=== PATIENT | female | born 1990 | race African-American/Black ===

== ENCOUNTER 2017-01-13 16:05 | Emergency (ER) | payer OTHER ==
[~2017-01-13] VITALS: Ht 170.2 cm; Wt 57.6 kg
[~2017-01-13 16:05] MED LIST: AMOXICILLIN 50500 MG PO; DIFLUCAN150 M1 PO; LIDOCAINE 22 %/30 GM MM
[2017-01-13 16:38] LABS: URINE BILIRUBIN NEGATIVE (Negative); URINE BLOOD TRACE (Negative); URINE COLOR YELLOW; URINE GLUCOSE-RANDOM* NEGATIVE (Negative); URINE KETONES NEGATIVE (Negative); URINE NITRITE NEGATIVE (Negative); URINE PROTEIN (DIPSTICK) NEGATIVE (Negative); URINE SPECIFIC GRAVITY <= 1.005 (1.003-1.035); URINE UROBILINOGEN 0.2 E.U./dl (0.2-1.0)
[2017-01-13] MEDS ORDERED: DIFLUCAN150 MG PO (17:40)
[2017-01-13 18:26] VITALS: BP 118/75
[2017-01-14 16:13] LABS: CHLAMYDIA TRACHOMATIS-PCR Negative (Negative); NEISSERIA GONORRHEA-PCR Negative (Negative)
== END 2017-01-13 18:15 | disposition home or self-care (01) ==
LOC: ER 16:05
PROVIDERS: Physician Assistant
DX: B37.3 Candidiasis of vulva and vagina (principal)

== ENCOUNTER 2019-11-09 03:28 | Emergency (ER) | payer OTHER ==
[~2019-11-09] VITALS: Ht 170.2 cm; Wt 61.7 kg
[~2019-11-09 03:28] MED LIST changes: +DIFLUCAN150 MG PO
[2019-11-09] MEDS ORDERED: CLEOCIN HCL150 MG PO (03:51)
[2019-11-09] MEDS ORDERED: NORCO 5-325 TA1 EAC1 PO (03:52)
[2019-11-09] MEDS ORDERED: PIRMELLA 1-351 EACH PO (03:54)
[2019-11-09 04:10] LABS: URINE BILIRUBIN 1+ (Negative); URINE BLOOD 1+ (Negative); URINE CLARITY CLEAR; URINE COLOR YELLOW; URINE GLUCOSE-RANDOM* NEGATIVE (Negative); URINE KETONES 2+ (Negative); URINE LEUKOCYTES-REFLEX NEGATIVE (Negative); URINE NITRITE-REFLEX NEGATIVE (Negative); URINE PROTEIN (DIPSTICK) 1+ (Negative); URINE SPECIFIC GRAVITY >= 1.030 (1.005-1.035); URINE UROBILINOGEN 0.2 E.U./dl (0.2-1.0)
[2019-11-09 04:44] LABS: BACTERIA-REFLEX 1-9 Few /HPF (None Seen); CASTS None Seen /LPF (None Seen); CRYSTALS None Seen /LPF (None Seen); MUCUS 4-6 Moderate strn/LPF (None Seen); SQUAMOUS 4-10 Moderate /LPF (0-3); URINE RBC 3-10 Few /HPF (0-2); URINE WBC-REFLEX 0-5 Rare /HPF (0-5)
[2019-11-09] MEDS ORDERED: METHOCARBAMOL500 M2 PO (05:29)
[2019-11-09] MEDS ORDERED: NAPROXEN375 MG PO (05:29)
[2019-11-09 06:10] VITALS: BP 122/80
== END 2019-11-09 06:11 | disposition home or self-care (01) ==
LOC: ER 03:28
PROVIDERS: Emergency Medicine
DX: S39.012A Strain of muscle, fascia and tendon of lower back, initial encounter (principal); Z79.2 Long term (current) use of antibiotics; Z79.899 Other long term (current) drug therapy; V43.62XA Car passenger injured in collision with other type car in traffic accident, initial encounter; Y93.89 Activity, other specified; Y92.89 Other specified places as the place of occurrence of the external cause; Y99.8 Other external cause status